=== PATIENT | female | born 1990 | race Two or more races ===

== ENCOUNTER 2023-06-16 15:27 | Emergency (ER) | payer MEDICAID, OTHER ==
[~2023-06-16] VITALS: Ht 182.9 cm; Wt 97.5 kg
[2023-06-16 15:53] VITALS: BP 139/88; TEMP 97.9; O2SAT 98
[2023-06-16] MEDS ORDERED: ERYT3.5O9 EACHEYE (16:13)
== END 2023-06-16 16:30 ==
LOC: ER 15:41
DX: H00.014 Hordeolum externum left upper eyelid (principal); H00.015 Hordeolum externum left lower eyelid; F32.A Depression, unspecified; Z60.2 Problems related to living alone